=== PATIENT | female | born 1980 | race Caucasian/White ===

== ENCOUNTER 2020-08-15 10:20 | Emergency (ER) | payer BC, SELFPAY ==
[2020-08-15 10:31] VITALS: BP 120/86; PULSE 101; RESP 16; TEMP 37; O2SAT 99
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
== END 2020-08-15 11:25 | disposition home or self-care (01) ==
PROVIDERS: Emergency Provider General Practice
DX: S09.90XA Unspecified injury of head, initial encounter (principal); W51.XXXA Accidental striking against or bumped into by another person, initial encounter
CPT/HCPCS: 99282

== ENCOUNTER 2020-12-20 12:01 | Outpatient (CLI) | payer BC, SELFPAY ==
--- NOTE | ~2020-12-20 | MM_ITS ---
EXAMINATION: MM screening matt BI w colby HISTORY: Screening TECHNIQUE: Craniocaudal and mediolateral oblique 3-D tomosynthesis images were obtained and synthetic 2-D images were generated. CAD analysis was submitted and interpreted. COMPARISON: No prior mammogram is available for comparison at this institution. BREAST PARENCHYMAL COMPOSITION: The breasts are heterogenously dense, which may obscure small masses. FINDINGS: There are scattered benign bilateral breast calcifications. No mammographic evidence for ma lignancy in the right breast. There are asymmetries in the upper outer quadrant of the left breast. IMPRESSION: 1. Left breast asymmetries, upper outer quadrant. 2. Additional mammographic views and possible breast ultrasound are recommended. BI-RADS Category 0: Incomplete: Needs additional imaging evaluation. Reviewed, dictated and finalized at location D. IMPRESSION: 1. Left breast asymmetries, upper outer quadrant. 2. Additional mammographic views and possible breast ultrasound are recommended . BI-RADS Category 0: Incomplete: Needs additional imaging evaluation.
== END 2020-12-20 12:02 | disposition home or self-care (01) ==
LOC: ANHIMG 12:03
PROVIDERS: PCP Nurse Practitioner Family; Visit Provider Nurse Practitioner Family
DX: Z12.31 Encounter for screening mammogram for malignant neoplasm of breast (principal); R92.8 Other abnormal and inconclusive findings on diagnostic imaging of breast
CPT/HCPCS: 77063; 77067

== ENCOUNTER 2021-01-15 13:25 | Outpatient (CLI) | payer BC, SELFPAY ==
--- NOTE | ~2021-01-15 | MMUS_ITS ---
EXAMINATION: MM diagnostic matt LT w colby, US breast LT limited HISTORY: Left breast focal asymmetry on baseline screening mammogram TECHNIQUE: Additional 3-D tomosynthesis images of the left breast were performed and synthetic 2-D im ages were generated. CAD analysis was submitted and interpreted. High resolution limited left breast ultrasound was performed. COMPARISON: 12/20/2020 FINDINGS: MAMMOGRAPHIC FINDINGS: There is persistent focal asymmetry in the anterior third of the upper outer quadrant of the breast w ith spot compression. No discrete mass, architectural distortion, or suspicious calcification are sharla ntified. ULTRASOUND: There is a 6 mm round, anechoic, circumscribed mass with posterior shadowing and no internal vascular ity at the 1:00 location 3 cm from the nipple. There is a 4 mm round, circumscribed, hypoechoic mass with no posterior features or internal vascularity at the 2:00 location 5 cm from the nipple. IMPRESSION: 1. Probably benign focal asymmetry and masses of the left breast. 2. Recommend 6 month follow-up left diagnostic mammogram and ultrasound. BI-RADS category 3, probably benign findings. Reviewed, dictated and finalized at location A. IMPRESSION: 1. Probably benign focal asymmetry and masses of the left breast. 2. Recommend 6 month follow-up left diagnostic mammogram and ultrasound. BI-RADS category 3, probably benign findings.
== END 2021-01-15 13:26 | disposition home or self-care (01) ==
PROVIDERS: PCP Nurse Practitioner Family; Visit Provider Nurse Practitioner Family
DX: R92.8 Other abnormal and inconclusive findings on diagnostic imaging of breast (principal)
CPT/HCPCS: 76642; 77061; 77065; G0279

== ENCOUNTER 2021-08-06 11:16 | Outpatient (CLI) | payer BC, SELFPAY ==
--- NOTE | ~2021-08-06 | MMUS_ITS ---
EXAMINATION: MM diagnostic matt LT w colby, US breast LT complete HISTORY: Six-month follow-up left breast masses TECHNIQUE: Additional 3-D tomosynthesis images of the left breast were performed and synthetic 2-D im ages were generated. CAD analysis was submitted and interpreted. High resolution left breast ultrasou nd was performed. COMPARISON: Comparison to multiple prior studies sequentially, with oldest reviewed study dated 12/20. BREAST PARENCHYMAL COMPOSITION: The breasts are heterogenously dense, which may obscure small masses FINDINGS: MAMMOGRAPHIC FINDINGS: There are scattered left breast masses which are obscured by fibroglandular tissue. There are benign- appearing left breast calcifications unchanged. ULTRASOUND: Complete US of all 4 quadrants of the left breast and retroareolar region was reviewed. There are mul tiple cysts of the left breast, largest at 6:00, 1 cm from the nipple measuring 1 cm maximum dimensio n. No suspicious masses to suggest malignancy. IMPRESSION: 1. No evidence for malignancy in the left breast. Benign findings. 2. Routine yearly screening mammogram and regular clinical breast examination are recommended. BI-RADS Category 2: Benign finding(s). Reviewed, dictated and finalized at location A. 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 No evidence for malignancy in the left breast. Benign findings. 2. Routine yearly screening mammogram and regular clinical breast examination a re recommended. BI-RADS Category 2: Benign finding(s).
== END 2021-08-06 11:17 | disposition home or self-care (01) ==
LOC: ANHIMG 11:18
PROVIDERS: PCP Nurse Practitioner Family; Visit Provider Nurse Practitioner Family
DX: R92.8 Other abnormal and inconclusive findings on diagnostic imaging of breast (principal)
CPT/HCPCS: 76641; 77061; 77065; G0279

== ENCOUNTER 2023-03-31 08:48 | Outpatient (CLI) | payer BC, SELFPAY ==
--- NOTE | ~2023-03-31 | MM_ITS ---
EXAMINATION: MM screening matt BI w colby HISTORY: Screening mammogram TECHNIQUE: Craniocaudal and mediolateral oblique 3-D tomosynthesis images were obtained and synthetic 2-D images were generated. CAD analysis was submitted and interpreted. COMPARISON: 08/06/2021, 01/15/2021, 12/20/2020 BREAST PARENCHYMAL COMPOSITION: The breasts are heterogeneously dense, which may obscure small masses . FINDINGS: Scattered benign-appearing calcifications are present. No suspicious mass, calcification, o r architectural distortion are identified in either breast to suggest malignancy. There has been no s uspicious interval change. IMPRESSION: 1. No mammographic evidence of malignancy. 2. Recommend routine screening mammography in one year. BI-RADS Category 2: Benign finding(s). Reviewed, dictated and finalized at location A.
== END 2023-03-31 08:49 | disposition home or self-care (01) ==
LOC: ANHIMG 08:50
PROVIDERS: PCP Nurse Practitioner Family; Visit Provider Obstetrics & Gynecology
DX: Z12.31 Encounter for screening mammogram for malignant neoplasm of breast (principal)
CPT/HCPCS: 77063; 77067

== ENCOUNTER 2025-03-08 07:42 | Outpatient (CLI) | payer BC, SELFPAY ==
--- NOTE | ~2025-03-08 | MM_ITS ---
EXAMINATION: MM screening [facility] BI w colby HISTORY: Screening TECHNIQUE: Craniocaudal and mediolateral oblique 3-D tomosynthesis images were obtained and synthetic 2-D images were generated. CAD analysis was submitted and interpreted. COMPARISON: Comparison to multiple prior studies sequentially, with oldest reviewed study dated 12/20/2020. BREAST PARENCHYMAL COMPOSITION: The breasts are heterogeneously dense, which may obscure small masses. FINDINGS: There is no evidence of suspicious mass, calcification, or architectural distortion to suggest malignancy in either breast. Scattered benign-appearing calcifications are present. IMPRESSION: 1. No mammographic evidence of malignancy. 2. Recommend routine screening mammography in one year. BI-RADS Category 2: Benign finding(s). Reviewed, dictated and finalized at location B.
== END 2025-03-08 07:43 | disposition home or self-care (01) ==
LOC: ANHFOHIMG 07:43
PROVIDERS: PCP Emergency Medicine; Visit Provider Physician Assistant
DX: Z12.31 Encounter for screening mammogram for malignant neoplasm of breast (principal)
CPT/HCPCS: 77063; 77067